=== PATIENT | male | born 2000 | race Caucasian/White ===

== ENCOUNTER 2023-02-10 15:47 | Emergency (ER) | payer BC, SELFPAY ==
[2023-02-10 16:00] VITALS: BP 107/78; PULSE 72; RESP 18; TEMP 36.8; O2SAT 98; BMI 20.3
--- NOTE | 2023-02-10 16:05 | ED_ITS ---
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 Denies other injuries. No numbness or tingling in this hand/extremity. He states that he doesn't think that the clavicle is broken, hurts more toward the shoulder. complaint: fall Related Data Allergies Allergy/AdvReac Type Severity Reaction Status Date / Time No Known Drug Allergies Allergy Verified 02/10/23 16:04 Review of Systems Narrative: As per HPI. Exam Const: Vital Signs, click to edit/add: Vital Signs - 24 hr 02/10/23 16:00 Temperature 98.3 F Pulse Rate [Right Pulse Oximeter] 72 Respiratory Rate 18 Blood Pressure [Ri ght Upper Arm] 107/78 Pulse Oximetry 98 Oxygen Delivery Me thod Room Air This is a 22-year-old male that is alert, interactive, no apparent distress. He is sitting in the bed, has his left arm alongside his body, elbow flexed across front of his body. On inspection of the anterior chest wall, note no ecchymosis or erythematous areas over the clavicle or shoulder on that side. The clavicle itself is nontender until I get out towards the AC joint, does have some point tenderness there. There is no crepitus. He is tender when I palpate over the upper humeral head but I can do gentle range of motion and there certainly does not seem to be any dislocation of the shoulder itself. With his humerus alongside his body, I can flex and extend supinate and pronate about the elbow which causes him no discomfort. There is no noted pain just below the shoulder throughout the rest the extremity. Denies any numbness tingling in this arm, has good peripheral pulses, cap refill is normal, skin is warm and dry throughout. Documenting provider has reviewed patient's vital signs: yes Course Course ED Course: Reviewed with patient that we will do an x-ray of his left shoulder. Do think we should look at his AC joint as I do suspect that is a possible injury. We discussed ?shoulder separation?. Will make sure there is no underlying fracture of the proximal humerus which could also be a possibility with impact in fall. It is possible if x-rays are negative that it could be the rotator cuff with this type of mechanism, the rotator cuff can get impacted. Will review films, wait radiology over read once we have them. Reevaluation(s) Time of Reevaluation #1: 17:15 Reevaluation #1: Have reviewed with patient that he does have an AC separation. Did provide him a copy of the x-ray report. Will have nursing staff bring in a sling. Reviewed management. Vital Signs Vital signs: Initial Vital Signs Temperature 98.3 F 02/10/23 16:00 Temperature Source Temporal Artery Scan 02/10/23 16:00 Pulse Rate 72 02/10/23 16:00 Pulse Rhythm Regular 02/10/23 16:00 Pulse Strength 3+ Normal 02/10/23 16:00 Respiratory Rate 18 02/10/23 16:00 Blood Pressure 107/78 02/10/23 16:00 Blood Pressure Mean 87 02/10/23 16:00 Blood Pressure Position Supine 02/10/23 16:00 Pulse Oximetry 98 02/10/23 16:00 Oxygen Delivery Method Room Air 02/10/23 16:00 Vital Signs Temperature 98.3 F 02/10/23 16:00 Pulse Rate 72 02/10/23 16:00 Respiratory Rate 18 02/10/23 16:00 Blood Pressure 107/78 02/10/23 16:00 Pulse Oximetry 98 02/10/23 16:00 Oxygen Delivery Method Room Air 02/10/23 16:00 Temperature 98.3 F 02/10/23 16:00 Pulse Rate 72 02/10/23 16:00 Respiratory Rate 18 02/10/23 16:00 Blood Pressure 107/78 02/10/23 16:00 Pulse Oximetry 98 02/10/23 16:00 Oxygen Delivery Method Room Air 02/10/23 16:00 MDM - Fall Imaging Data XR left shoulder: Attestation: I have reviewed the pertinent imaging results. Radiologist's impression: Patient: KRISH MARS Facility:?[facility] Patient ID:?[id number] Site Patient ID:?[id number]. Site :?[id number] Study:?XRay Shoulder Left -02/10/2023 4:44:45 PM Ordering Physician:?Lizzie Ortiz Final Report: Indication: Fell during soccer. Technique: Left shoulder, 3 views. Acromioclavicular joint with and without weights, 2 views Comparison: None. Findings: Left acromioclavicular separation. The clavicle is superiorly displaced by 1.4 cm at rest, with 0.2 cm improvement with weight. No overriding of the clavicle and the acromion. There is associated widening of the coracoclavicular space to 1.6 cm. The opposite normal side is 1 cm. There is no left clavicle fracture. Healing right midclavicle fracture. Impression: Left acromioclavicular separation without fracture, [employer] [place] type III. Dictated by Cele Guerra MD @ 02/10/2023 4:59:31 PM (Electronic Signature) XR AC joints: Attestation: I have reviewed the pertinent imaging results. My impression: Do see in creased widening of the left AC joint. Await Radiology over-read. Radiologist's impression: Patient: KRISH MARS Facility:?[facility] Patient ID:?[id number] Site Patient ID:?[id number]. Site :?[id number] Study:?XRay Extremity Bilateral AC joints-02/10/2023 4:44:12 PM Ordering Physician:Rubia Ortiz Final Report: Indication: Fell during soccer. Technique: Left shoulder, 3 views. Acromioclavicular joint with and without weights, 2 views Comparison: None. Findings: Left acromioclavicular separation. The clavicle is superiorly displaced by 1.4 cm at rest, with 0.2 cm improvement with weight. No overriding of the clavicle and the acromion. There is associated widening of the coracoclavicular space to 1.6 cm. The opposite normal side is 1 cm. There is no left clavicle fracture. Healing right midclavicle fracture. Impression: Left acromioclavicular separation without fracture, [employer] type III. Dictated by Cele Guerra MD @ 02/10/2023 5:00:00 PM Critical Care Time Critical Care Time Critical Care Time: No Discharge Plan Discharge Clinical Impression: Separation of left acromioclavicular joint Patient Disposition: Home, Self-Care Condition: Stable Instructions: Acromioclavicular Separation (ED) Additional Instructions: Use sling for immobilization. Ice to the shoulder area to help decrease pain and swelling. Tylenol and/or ibuprofen per bottle directions for pain management. You will need to call the orthopedic office tomorrow to get scheduled for a follow-up, phone number is [phone]. Follow Up/Referrals: Provider,Not a Local [Primary Care Provider] - Stand Alone Forms: Outcome Referrals Info Instructions
--- NOTE | 2023-02-10 16:09 | CRLHL7_ITS ---
For Patients: As a result of the Cures Act, medical imaging exams and procedure reports are released immediately into your electronic medical record. You may view this report before your referring provider. If you have questions, please contact your health care provider. Indication: Fell during soccer. Technique: Left shoulder, 3 views. Acromioclavicular joint with and without weights, 2 views Comparison: None. Findings: Left acromioclavicular separation. The clavicle is superiorly displaced by 1.4 cm at rest, with 0.2 cm improvement with weight. No overriding of the clavicle and the acromion. There is associated widening of the coracoclavicular space to 1.6 cm. The opposite normal side is 1 cm. There is no left clavicle fracture. Healing right midclavicle fracture. Impression: Left acromioclavicular separation without fracture, [place] type III. Dictated by Cele Guerra MD @ 02/10/2023 4:59:31 PM (Electronically Signed)
[2023-02-10 17:27] VITALS: BP 107/78; PULSE 72; RESP 18; TEMP 36.8
== END 2023-02-10 17:27 | disposition home or self-care (01) ==
PROVIDERS: Emergency Provider Family Medicine
DX: S43.102A Unspecified dislocation of left acromioclavicular joint, initial encounter (principal)
CPT/HCPCS: 73030; 73050; 99283; 99284

== ENCOUNTER 2023-03-28 16:30 | Outpatient (RCR) | payer BC, SELFPAY | END 2023-05-02 14:37 | disposition home or self-care (01) | PROVIDERS: Visit Provider Physician Assistant Surgical | DX: S43.102A Unspecified dislocation of left acromioclavicular joint, initial encounter (principal); Z51.89 Encounter for other specified aftercare | CPT/HCPCS: 97110; 97161 ==